=== PATIENT | male | born 1950 | race African-American/Black ===

== ENCOUNTER 2020-10-09 03:08 | Inpatient (IN) | payer MEDICAID, MEDICARE, OTHER ==
[~2020-10-09] VITALS: Ht 167.6 cm; Wt 58.3 kg
[~2020-10-09 03:08] MED LIST: CHLO25CA9 PO; LISI-170 PO; PROM25TA10 PO; SULF-23 PO; TAMS-11 PO
--- NOTE | 2020-10-09 04:40 | NUR ---
REPORT RECIEVED FROM SANDE[facility]
--- NOTE | 2020-10-09 04:45 | NUR ---
PT PRESENTS TO ER FOR AN ABCESS LOCATED ON HIS LEFT HIP, PT STATES THIS HAS BEEN GOING ON FOR A WEEK NOW
[2020-10-09 05:09] LABS: BASOPHILS % (AUTO) 1 % (0-1); EOSINOPHILS % (AUTO) 1 % (1-7); LYMPHOCYTES % (AUTO) 23 % (22-44); MEAN CORPUSCULAR HEMOGLOBIN 30.5 pg (27.5-34.5); MEAN PLATELET VOLUME 7.9 fL (7.4-10.4); MONOCYTES % (AUTO) 13 % (2-9); NEUTROPHILS % (AUTO) 63 % (42-75); PLATELET COUNT 236 x10^3/uL (130-400); RED BLOOD COUNT 4.27 x10^6/uL (4.38-5.82); RED CELL DISTRIBUTION WIDTH 13.9 % (9.4-14.8)
--- NOTE | 2020-10-09 05:10 | NUR ---
PT STATED HE USES THE AFFECTED SITE TO INJECT HEROIN
[2020-10-09 05:23] LABS: ALBUMIN 2.8 g/dL (3.4-5.0); ANION GAP 5 mmol/L (5-15); CALCIUM 8.5 mg/dL (8.5-10.1); CHLORIDE 102 mmol/L (98-107)
[2020-10-09 05:25] LABS: CREATININE 0.55 mg/dL (0.7-1.3)
--- NOTE | 2020-10-09 05:49 | NUR ---
PT ASLEEP IN BED, ALL NEEDS IN REACH, CALL LIGHT IN REACH, NAD AT THIS TIME, VSS
--- NOTE | 2020-10-09 06:09 | NUR ---
PT ASLEEP IN BED, ALL NEEDS IN REACH, CALL LIGHT IN REACH, NAD AT THIS TIME, VSS
[2020-10-09] MEDS ORDERED: VANCOMYCIN 1,300 MG in SODIUM CHLORIDE 0.9% 250 ML IV ONE (07:00)
[2020-10-09] MEDS ORDERED: ACETAMINOPHEN 325 MG TABLET PO PRN ×2 (07:00→11:00)
[2020-10-09] MEDS ORDERED: ONDANSETRON 2MG/ML, 2ML IVPush PRN ×2 (07:00→11:00)
[2020-10-09] MEDS ORDERED: ONDANSETRON ODT 4 MG PO PRN (07:00)
[2020-10-09] MEDS ORDERED: PROMETHAZINE 25 MG/ML, 1ML IM PRN (07:00)
[2020-10-09] MEDS ORDERED: PIPERACILLIN/TAZO 3.375 GM in DEXTROSE 5% 50 ML IVPB ONE (07:00)
[2020-10-09] MEDS ORDERED: PIPERACILLIN/TAZO 3.375 GM in DEXTROSE 5% 50 ML IV SCH (07:00)
[2020-10-09] MEDS ORDERED: VANCOMYCIN 1,400 MG in SODIUM CHLORIDE 0.9% 250 ML IV ONE (07:00)
[2020-10-09] MEDS ORDERED: OXYcodone IR 5MG TABLET PO PRN (07:00)
[2020-10-09] MEDS ORDERED: hydrALAzine 20 MG/ML, 1ML IVPush PRN (07:00)
[2020-10-09] MEDS ORDERED: VANCOMYCIN PER PHARMACY MC ONE (07:00)
[2020-10-09] MEDS ORDERED: DOCUSATE 100 MG CAPSULE PO PRN (07:00)
[2020-10-09] MEDS ORDERED: morphine SULFATE 10 MG/ML, 1ML IVPush PRN (07:00)
[2020-10-09] MEDS ORDERED: SODIUM CHLORIDE 0.9% 1,000 ML IV ONE (07:00)
[2020-10-09] MEDS ORDERED: VANCOMYCIN PER PHARMACY MC PRN (07:00)
[2020-10-09] MEDS ORDERED: ENALAPRILAT 1.25 MG/ML, 2ML IVPush PRN (07:00)
[2020-10-09] MEDS ORDERED: ZOLPIDEM 5MG TABLET PO PRN (07:00)
--- NOTE | 2020-10-09 08:13 | NUR ---
ATTEMPTED TO CALL REPORT TO FLOOR RN 3 TIMES WITHOUT SUCCESS. ASKED TO SPEAK TO [employer] AND WAS TOLD THAT I HAD TO GIVE REPORT TO THE ASSIGNED NURSE. CONTACTED NURSING OPS TO ADVISE ON DELAY.
--- NOTE | 2020-10-09 08:54 | NUR ---
PATIENT REPORT TO DONG WILDE
[2020-10-09] MEDS: SENNA/DOCUSATE TABLET PO SCH (09:00)
[2020-10-09] MEDS: SODIUM CHLORIDE 0.9% 1,000 ML IV SCH (09:48)
[2020-10-09 10:16] VITALS: BP 157/85
[2020-10-09] MEDS ORDERED: FENTANYL PF 250 MCG/5ML ONE (10:36)
[2020-10-09] MEDS ORDERED: LIDOCAINE-MPF 2% ,5ML ONE (10:36)
[2020-10-09] MEDS ORDERED: LABETALOL 5MG/ML, 20ML IV PRN (11:00)
[2020-10-09] MEDS ORDERED: PROMETHAZINE 25 MG/ML, 1ML IVPush PRN (11:00)
[2020-10-09] MEDS ORDERED: HYDROmorphone 1 MG/ML, 1ML INJ IVPush PRN (11:00)
[2020-10-09] MEDS ORDERED: FENTANYL PF 100 MCG/2ML IV PRN (11:00)
[2020-10-09] MEDS ORDERED: hydrALAzine 20 MG/ML, 1ML IV PRN (11:00)
[2020-10-09] MEDS ORDERED: EPHEDRINE 50 MG/ML, 1ML IVPush PRN (11:00)
[2020-10-09] MEDS ORDERED: OXYcodone 5 MG/5 ML ORAL.SOL UDC PO PRN (11:00)
[2020-10-09] MEDS ORDERED: PROPOFOL 10 MG/ML, 20ML ONE (11:34)
[2020-10-09] MEDS ORDERED: DEXAMETHASONE 4 MG/ML, 1ML ONE (11:34)
[2020-10-09] MEDS ORDERED: ONDANSETRON 2MG/ML, 2ML ONE (11:34)
[2020-10-09] MEDS ORDERED: FENTANYL PF 100 MCG/2ML ONE (12:12)
[2020-10-09] MEDS ORDERED: OXYcodone 5 MG/5 ML ORAL.SOL UDC ONE (12:13)
[2020-10-09] MEDS ORDERED: PHARMACOKINETIC CONSULTATION MC ONE (12:30)
[2020-10-09] MEDS ORDERED: PHARMACOKINETIC MONITORING MC PRN (12:30)
[2020-10-09] MEDS: PIPERACILLIN/TAZO 3.375 GM in DEXTROSE 5% 50 ML IV SCH ×2 (14:11→20:31)
[2020-10-09 14:13] VITALS: BP 189/98
[2020-10-09 19:37] VITALS: BP 123/71
[2020-10-09 19:59] VITALS: BP 123/68
[2020-10-09 20:33] VITALS: BP 151/69
[2020-10-09] MEDS: LISINOPRIL 20 MG TABLET PO SCH (20:34)
[2020-10-10 00:17] VITALS: BP 135/78
[2020-10-10 00:18] VITALS: BP 135/78
[2020-10-10] MEDS: VANCOMYCIN 1,200 MG in SODIUM CHLORIDE 0.9% 250 ML IV SCH (01:17)
[2020-10-10] MEDS: PIPERACILLIN/TAZO 3.375 GM in DEXTROSE 5% 50 ML IV SCH ×3 (03:28→14:02)
[2020-10-10] MEDS: SODIUM CHLORIDE 0.9% 1,000 ML IV SCH ×3 (06:03→22:20)
[2020-10-10] MEDS: SENNA/DOCUSATE TABLET PO SCH (08:45)
[2020-10-10] MEDS: TAMSULOSIN 0.4 MG CAP.ER.24H PO SCH (08:45)
[2020-10-10] MEDS: LISINOPRIL 20 MG TABLET PO SCH ×2 (08:46→20:14)
[2020-10-10 09:02] LABS: BASOPHILS % (AUTO) 1 % (0-1); EOSINOPHILS % (AUTO) 0 % (1-7); LYMPHOCYTES % (AUTO) 6 % (22-44); MEAN CORPUSCULAR HEMOGLOBIN 29.9 pg (27.5-34.5); MEAN CORPUSCULAR HGB CONC 33.4 g/dL (33.2-36.2); MEAN PLATELET VOLUME 8.7 fL (7.4-10.4); MONOCYTES % (AUTO) 6 % (2-9); NEUTROPHILS % (AUTO) 88 % (42-75); PLATELET COUNT 240 x10^3/uL (130-400); RED BLOOD COUNT 4.07 x10^6/uL (4.38-5.82); RED CELL DISTRIBUTION WIDTH 13.8 % (9.4-14.8)
[2020-10-10 09:12] LABS: ANION GAP 7 mmol/L (5-15); CALCIUM 8.4 mg/dL (8.5-10.1); CHLORIDE 108 mmol/L (98-107); CREATININE 0.58 mg/dL (0.7-1.3)
[2020-10-10 09:17] VITALS: BP 136/73
[2020-10-10 12:11] VITALS: BP 131/69
[2020-10-10] MEDS ORDERED: GADOTERATE 7.5 MMOL/15ML SYR ONE (13:30)
[2020-10-10] MEDS: ENOXAPARIN 40 MG/0.4 ML SQ SCH (17:29)
[2020-10-10 18:40] VITALS: BP 125/75
[2020-10-10 20:14] VITALS: BP 143/70
[2020-10-11 00:31] VITALS: BP 149/72
[2020-10-11] MEDS: PIPERACILLIN/TAZO 3.375 GM in DEXTROSE 5% 50 ML IV SCH ×3 (02:00→09:04)
[2020-10-11] MEDS: VANCOMYCIN 1,200 MG in SODIUM CHLORIDE 0.9% 250 ML IV SCH (04:24)
[2020-10-11 06:59] VITALS: BP 156/82
[2020-10-11] MEDS: SENNA/DOCUSATE TABLET PO SCH (09:00)
[2020-10-11] MEDS: LISINOPRIL 20 MG TABLET PO SCH ×2 (09:04→20:28)
[2020-10-11] MEDS: TAMSULOSIN 0.4 MG CAP.ER.24H PO SCH (09:04)
[2020-10-11] MEDS: SODIUM CHLORIDE 0.9% 1,000 ML IV SCH (09:11)
[2020-10-11 12:04] LABS: BASOPHILS % (AUTO) 0 % (0-1); EOSINOPHILS % (AUTO) 0 % (1-7); LYMPHOCYTES % (AUTO) 17 % (22-44); MEAN CORPUSCULAR HEMOGLOBIN 30.1 pg (27.5-34.5); MEAN PLATELET VOLUME 8.1 fL (7.4-10.4); MONOCYTES % (AUTO) 7 % (2-9); NEUTROPHILS % (AUTO) 77 % (42-75); PLATELET COUNT 279 x10^3/uL (130-400); RED BLOOD COUNT 3.92 x10^6/uL (4.38-5.82)
[2020-10-11 12:12] LABS: ALANINE AMINOTRANSFERASE 16 U/L (12-78); ALBUMIN 2.3 g/dL (3.4-5.0); ANION GAP 6 mmol/L (5-15); CALCIUM 8.3 mg/dL (8.5-10.1); CHLORIDE 107 mmol/L (98-107); CREATININE 0.58 mg/dL (0.7-1.3)
[2020-10-11 12:15] LABS: ALKALINE PHOSPHATASE 69 U/L (45-117); BILIRUBIN,TOTAL 0.4 mg/dL (0.2-1.0); TOTAL PROTEIN 6.8 g/dL (6.4-8.2)
[2020-10-11 12:48] VITALS: BP 163/85
[2020-10-11] MEDS ORDERED: POTASSIUM CHLORIDE 20 MEQ TAB.ER.PRT PO ONE (15:30)
[2020-10-11] MEDS: ENOXAPARIN 40 MG/0.4 ML SQ SCH (17:14)
[2020-10-11 20:23] VITALS: BP 145/82
[2020-10-12] MEDS: SODIUM CHLORIDE 0.9% 1,000 ML IV SCH (00:30)
[2020-10-12 00:41] VITALS: BP 155/81
[2020-10-12 04:30] LABS: BASOPHILS % (AUTO) 1 % (0-1); EOSINOPHILS % (AUTO) 1 % (1-7); LYMPHOCYTES % (AUTO) 32 % (22-44); MEAN CORPUSCULAR HEMOGLOBIN 30.3 pg (27.5-34.5); MEAN CORPUSCULAR HGB CONC 33.9 g/dL (33.2-36.2); MEAN PLATELET VOLUME 8.1 fL (7.4-10.4); MONOCYTES % (AUTO) 9 % (2-9); NEUTROPHILS % (AUTO) 57 % (42-75); PLATELET COUNT 289 x10^3/uL (130-400); RED BLOOD COUNT 4.37 x10^6/uL (4.38-5.82); RED CELL DISTRIBUTION WIDTH 13.8 % (9.4-14.8)
[2020-10-12 04:34] LABS: ALBUMIN 2.2 g/dL (3.4-5.0); ANION GAP 6 mmol/L (5-15); CALCIUM 7.7 mg/dL (8.5-10.1); CHLORIDE 110 mmol/L (98-107)
[2020-10-12 04:37] LABS: ALANINE AMINOTRANSFERASE 18 U/L (12-78); ALKALINE PHOSPHATASE 77 U/L (45-117); BILIRUBIN,TOTAL 0.3 mg/dL (0.2-1.0); CREATININE 0.55 mg/dL (0.7-1.3); TOTAL PROTEIN 6.7 g/dL (6.4-8.2)
[2020-10-12] MEDS: VANCOMYCIN 1,200 MG in SODIUM CHLORIDE 0.9% 250 ML IV SCH (04:37)
[2020-10-12 04:41] LABS: VANCOMYCIN,TROUGH 2.4 mcg/mL (5.0-10.0)
[2020-10-12] MEDS ORDERED: POTASSIUM CHLORIDE 20 MEQ TAB.ER.PRT PO ONE (06:30)
[2020-10-12 08:21] VITALS: BP 156/89
[2020-10-12] MEDS: LISINOPRIL 20 MG TABLET PO SCH (08:22)
[2020-10-12] MEDS: SENNA/DOCUSATE TABLET PO SCH (08:23)
[2020-10-12] MEDS: TAMSULOSIN 0.4 MG CAP.ER.24H PO SCH (08:23)
[2020-10-12] MEDS ORDERED: AMOXICILLIN/CLAV 875-125MG TABLET PO SCH (09:00)
[2020-10-12] MEDS ORDERED: AMOX1TAB12 PO (14:06)
[2020-10-12 14:21] VITALS: BP 154/85
[2020-10-12] MEDS: ENOXAPARIN 40 MG/0.4 ML SQ SCH (16:10)
== END 2020-10-12 16:32 | disposition home or self-care (01) | DRG 364 ==
LOC: ED 05:41 → EDIP 06:45 → 3N 09:17
PROVIDERS: ADMIT Hospitalist; ATTEND Family Medicine
PROC: 0JDM0ZZ Extraction of Left Upper Leg Subcutaneous Tissue and Fascia, Open Approach (ICD-10-PCS; principal; 2020-10-09 07:00)
DX: L03.116 Cellulitis of left lower limb (principal); D63.8 Anemia in other chronic diseases classified elsewhere; E87.1 Hypo-osmolality and hyponatremia; L02.416 Cutaneous abscess of left lower limb; E88.09 Other disorders of plasma-protein metabolism, not elsewhere classified; E87.6 Hypokalemia; F10.20 Alcohol dependence, uncomplicated; F11.20 Opioid dependence, uncomplicated; F17.210 Nicotine dependence, cigarettes, uncomplicated; Z20.822 Contact with and (suspected) exposure to COVID-19; H40.9 Unspecified glaucoma; I10 Essential (primary) hypertension; L02.31 Cutaneous abscess of buttock; L03.317 Cellulitis of buttock; N40.0 Benign prostatic hyperplasia without lower urinary tract symptoms; Z59.0 Homelessness; Z63.8 Other specified problems related to primary support group; Z91.19 Patient's noncompliance with other medical treatment and regimen
CPT/HCPCS: 36415; 73502; 96365; 99285; J3490; 80048; 80053; 80202; 82040; 82330; 83605; 83735; 85025; 87040; 87070; 87077; 87186; 87205; 87635; G0378; J1100; J1650; J2405; J2543; J2704; J3010; J3370; U0005; A9575; J7030; J7050; U0003

== ENCOUNTER 2020-10-20 14:22 | Outpatient (CLI) | payer MEDICAID ==
[~2020-10-20 14:22] MED LIST changes: +AMOX1TAB12 PO
== END 2020-10-20 23:59 | disposition home or self-care (01) ==
LOC: WOUND 14:22
PROVIDERS: ATTEND Internal Medicine
DX: L59.8 Other specified disorders of the skin and subcutaneous tissue related to radiation (principal); S71.002D Unspecified open wound, left hip, subsequent encounter; L02.416 Cutaneous abscess of left lower limb; F19.10 Other psychoactive substance abuse, uncomplicated; F10.20 Alcohol dependence, uncomplicated; D63.8 Anemia in other chronic diseases classified elsewhere; I10 Essential (primary) hypertension; N40.0 Benign prostatic hyperplasia without lower urinary tract symptoms; F17.210 Nicotine dependence, cigarettes, uncomplicated; F11.20 Opioid dependence, uncomplicated; H40.9 Unspecified glaucoma; Z20.822 Contact with and (suspected) exposure to COVID-19; X58.XXXD Exposure to other specified factors, subsequent encounter; Y84.2 Radiological procedure and radiotherapy as the cause of abnormal reaction of the patient, or of later complication, without mention of misadventure at the time of the procedure
CPT/HCPCS: 97597; 99203; 99215; G0463

== ENCOUNTER 2020-10-29 10:07 | Outpatient (CLI) | payer MEDICAID | END 2020-10-29 23:59 | disposition home or self-care (01) | LOC: WOUND 10:07 | PROVIDERS: ATTEND Internal Medicine | DX: L59.8 Other specified disorders of the skin and subcutaneous tissue related to radiation (principal); S71.002D Unspecified open wound, left hip, subsequent encounter; L02.416 Cutaneous abscess of left lower limb; F19.10 Other psychoactive substance abuse, uncomplicated; F10.20 Alcohol dependence, uncomplicated; D63.8 Anemia in other chronic diseases classified elsewhere; I10 Essential (primary) hypertension; N40.0 Benign prostatic hyperplasia without lower urinary tract symptoms; F17.210 Nicotine dependence, cigarettes, uncomplicated; F11.20 Opioid dependence, uncomplicated; H40.9 Unspecified glaucoma; Z20.822 Contact with and (suspected) exposure to COVID-19; X58.XXXD Exposure to other specified factors, subsequent encounter; Y84.2 Radiological procedure and radiotherapy as the cause of abnormal reaction of the patient, or of later complication, without mention of misadventure at the time of the procedure | CPT/HCPCS: 11043 ==

== ENCOUNTER → 2020-11-12 | Outpatient (CLI) | payer MEDICAID | END | disposition home or self-care (01) | LOC: WOUND 14:08 | PROVIDERS: ATTEND Internal Medicine | DX: L59.8 Other specified disorders of the skin and subcutaneous tissue related to radiation (principal); S71.002D Unspecified open wound, left hip, subsequent encounter; L02.416 Cutaneous abscess of left lower limb; F19.10 Other psychoactive substance abuse, uncomplicated; F10.20 Alcohol dependence, uncomplicated; D63.8 Anemia in other chronic diseases classified elsewhere; I10 Essential (primary) hypertension; N40.0 Benign prostatic hyperplasia without lower urinary tract symptoms; F17.210 Nicotine dependence, cigarettes, uncomplicated; F11.20 Opioid dependence, uncomplicated; H40.9 Unspecified glaucoma; Z20.822 Contact with and (suspected) exposure to COVID-19; X58.XXXD Exposure to other specified factors, subsequent encounter; Y84.2 Radiological procedure and radiotherapy as the cause of abnormal reaction of the patient, or of later complication, without mention of misadventure at the time of the procedure | CPT/HCPCS: 97597 ==

== ENCOUNTER → 2020-11-15 | Outpatient (CLI) | payer MEDICAID | END | disposition home or self-care (01) | LOC: WOUND 08:00 | PROVIDERS: ATTEND Internal Medicine | DX: L59.8 Other specified disorders of the skin and subcutaneous tissue related to radiation (principal); S71.002D Unspecified open wound, left hip, subsequent encounter; L02.416 Cutaneous abscess of left lower limb; F19.10 Other psychoactive substance abuse, uncomplicated; F10.20 Alcohol dependence, uncomplicated; D63.8 Anemia in other chronic diseases classified elsewhere; I10 Essential (primary) hypertension; N40.0 Benign prostatic hyperplasia without lower urinary tract symptoms; F17.210 Nicotine dependence, cigarettes, uncomplicated; F11.20 Opioid dependence, uncomplicated; H40.9 Unspecified glaucoma; Z20.822 Contact with and (suspected) exposure to COVID-19; X58.XXXD Exposure to other specified factors, subsequent encounter; Y84.2 Radiological procedure and radiotherapy as the cause of abnormal reaction of the patient, or of later complication, without mention of misadventure at the time of the procedure ==

== ENCOUNTER → 2020-11-17 | Outpatient (CLI) | payer MEDICAID | END | disposition home or self-care (01) | LOC: WOUND 08:00 | PROVIDERS: ATTEND Internal Medicine | DX: L59.8 Other specified disorders of the skin and subcutaneous tissue related to radiation (principal); S71.002D Unspecified open wound, left hip, subsequent encounter; L02.416 Cutaneous abscess of left lower limb; F19.10 Other psychoactive substance abuse, uncomplicated; F10.20 Alcohol dependence, uncomplicated; D63.8 Anemia in other chronic diseases classified elsewhere; I10 Essential (primary) hypertension; N40.0 Benign prostatic hyperplasia without lower urinary tract symptoms; F17.210 Nicotine dependence, cigarettes, uncomplicated; F11.20 Opioid dependence, uncomplicated; H40.9 Unspecified glaucoma; Z20.822 Contact with and (suspected) exposure to COVID-19; Y84.2 Radiological procedure and radiotherapy as the cause of abnormal reaction of the patient, or of later complication, without mention of misadventure at the time of the procedure ==